=== PATIENT | male | born 1980 | race Caucasian/White ===

== ENCOUNTER 2020-04-18 14:58 | Emergency (ER) | payer BC, OTHER ==
[2020-04-18] MEDS ORDERED: diphenhydrAMINE 50 MG/ML VIAL ONE (15:39)
[2020-04-18] MEDS ORDERED: methylPREDNISolone Sod Succ/PF 125 MG/2 ML VIAL ONE (15:39)
[2020-04-18] MEDS ORDERED: Metoclopramide HCl 10 MG/2 ML VIAL ONE (15:39)
[2020-04-18] MEDS ORDERED: Ketorolac Tromethamine 30 MG/ML VIAL ONE (15:39)
[2020-04-18] MEDS ORDERED: Meperidine HCl/PF 25 MG/ML VIAL ONE (16:36)
[2020-04-18 17:32] LABS: #Basophils 0.1 10x3/uL (0.0-0.2); #Eosinphils 0.1 10x3/uL (0.0-0.5); #Monocytes 0.7 10x3/uL (0.0-1.1); #Neutrophils 4.1 10x3/uL (1.5-8.4); %Basophils 0.7 % (0.0-2.0); %Eosinophils 0.9 % (0.0-6.0); %Lymphocytes 33.6 % (18.0-47.0); %Monocytes 9.8 % (0.0-10.0); %Neutrophils 54.5 % (40.0-75.0); Hemoglobin 13.2 g/dL (13.5-17.5); Mean Corpuscular HGB CONC 33.5 g/dL (32.0-36.0); Mean Corpuscular Hemoglobin 30.7 pg (27.0-33.0); Mean Corpuscular Volume 91.6 fl (81.2-95.1); Platelet Count 286 10x3/uL (150-450); RBC Distribution Width 13.2 % (11.5-14.5); White Blood Cell (WBC) Count 7.5 10x3/uL (3.5-10.5)
[2020-04-18 17:58] LABS: ALT (SGPT) 109 U/L (8-55); AST (SGOT) 53 U/L (5-34); Albumin 4.5 g/dL (3.5-5.0); Alkaline Phosphatase 57 U/L (40-110); Anion Gap 14 mmol/L (10-20); BUN (Urea Nitrogen) 12 mg/dL (8.9-20.6); Bilirubin, Total 0.2 mg/dL (0.2-1.2); Calc. Creatinine Clearance 0 mL/min (70-130); Calcium 9.5 mg/dL (7.8-10.44); Carbon Dioxide 23 mmol/L (22-29); Chloride 101 mmol/L (98-107); Globulin 2.8 g/dL (2.4-3.5); Glucose 194 mg/dL (70-105); Potassium 3.9 mmol/L (3.5-5.1); Protein, Total 7.3 g/dL (6.0-8.3); Sodium 134 mmol/L (136-145)
== END 2020-04-18 19:31 | disposition home or self-care (01) ==
LOC: CSHERS 14:58
DX: R07.89 Other chest pain (principal); R51.9 Headache, unspecified; E78.5 Hyperlipidemia, unspecified; I10 Essential (primary) hypertension; K21.9 Gastro-esophageal reflux disease without esophagitis; Z79.899 Other long term (current) drug therapy
CPT/HCPCS: 36416; 70450; 71045; 80053; 84484; 85025; 93005; 96374; 96375; J1200; J1885; J2175; J2765; J2930

== ENCOUNTER 2023-08-20 17:10 | Emergency (ER) | payer OTHER ==
[2023-08-20 17:56] LABS: Actual Bicarbonate (HCO3v) 22.2 mEq/L (22-28); Analyzer IN Cardio CS ER; Calcium, Ionized (venous) 1.18 mmol/L (1.16-1.32); Chloride (VBG) 100 mmol/L (98-106); Hematocrit-VBG 42 % (42.0-52.0); Hemoglobin (Hb) 14.3 g/dL (13.2-17.3); Potassium (VBG) 3.83 mmol/L (3.70-5.30); Puncture Site Other Site; RapidComm Collect By LAB; Sodium 139 mmol/L (133-146); pH (venous) 7.407 (7.32-7.43)
[2023-08-20 17:57] LABS: #Basophils 0.05 10x3/uL (0.0-0.2); #Eosinphils 0.17 10x3/uL (0.0-0.5); #Monocytes 0.67 10x3/uL (0.0-1.1); #Neutrophils 4.31 10x3/uL (1.5-8.4); %Basophils 0.6 % (0.0-2.0); %Eosinophils 2.2 % (0.0-6.0); %Lymphocytes 33.2 % (18.0-47.0); %Monocytes 8.6 % (0.0-10.0); Hematocrit 38.4 % (38.8-50.0); Hemoglobin 13.6 g/dL (13.5-17.5); Mean Corpuscular HGB CONC 35.4 g/dL (32.0-36.0); Mean Corpuscular Hemoglobin 30.8 pg (27.0-33.0); Mean Corpuscular Volume 87.1 fL (81.2-95.1); Mean Platelet Volume 10.9 fL (7.4-10.4); Platelet Count 278 10x3/uL (150-450); RBC Distribution Width 13.6 % (11.5-14.5); Red Blood Cell (RBC) Count 4.41 10x6/uL (4.32-5.72); White Blood Cell (WBC) Count 7.8 10x3/uL (3.5-10.5)
[2023-08-20 18:10] LABS: ALT (SGPT) 62 U/L (8-55); AST (SGOT) 36 U/L (5-34); Albumin 4.1 g/dL (3.5-5.0); Alkaline Phosphatase 72 U/L (40-110); Anion Gap 15 mmol/L (10-20); BUN (Urea Nitrogen) 15 mg/dL (8.9-20.6); Bilirubin, Total 0.2 mg/dL (0.2-1.2); Calc. Creatinine Clearance 0 mL/min (70-130); Calcium 9.5 mg/dL (7.8-10.44); Carbon Dioxide 22 mmol/L (22-29); Chloride 102 mmol/L (98-107); Estimated GFR 87; Globulin 3.4 g/dL (2.4-3.5); Glucose 155 mg/dL (70-105); Potassium 3.8 mmol/L (3.5-5.1); Protein, Total 7.5 g/dL (6.0-8.3); Sodium 135 mmol/L (136-145)
== END 2023-08-20 18:30 | disposition home or self-care (01) ==
LOC: CSHERS 17:10
DX: E11.65 Type 2 diabetes mellitus with hyperglycemia (principal); I10 Essential (primary) hypertension; Z79.84 Long term (current) use of oral hypoglycemic drugs; Z87.891 Personal history of nicotine dependence
CPT/HCPCS: 36415; 36416; 80053; 82805; 85025; 93005